=== PATIENT | male | born 1960 | race Caucasian/White ===

== ENCOUNTER 2024-04-05 10:08 | Emergency (ER) | payer OTHER ==
[~2024-04-05] VITALS: Ht 172.7 cm; Wt 93.0 kg
[2024-04-05] MEDS: IV NS 0.9% 1,000 ML BAG IV ONE ×2 (10:44→12:34)
[2024-04-05 11:11] LABS: BASOPHILS # (AUTO) 0.1 K/uL (0.0-0.2); BASOPHILS % (AUTO) 0.4 % (0.0-2.0); HEMATOCRIT 43 % (39-51); HEMOGLOBIN 14.4 g/dL (13.5-17.5); LYMPHOCYTES # (AUTO) 1.1 K/uL (0.8-4.8); LYMPHOCYTES % (AUTO) 6.8 % (20.0-44.0); MEAN CORPUSCULAR HEMOGLOBIN 27 PG (26.0-33.0); MEAN CORPUSCULAR HGB CONC 33 g/dl (31.0-36.0); MEAN CORPUSCULAR VOLUME 81 fL (80-96); MONOCYTES # (AUTO) 0.9 K/uL (0.1-1.30); MONOCYTES % (AUTO) 5.6 % (2.0-12.0); NEUTROPHILS # (AUTO) 13.7 K/uL (1.8-8.9); NEUTROPHILS % (AUTO) 87.2 % (43.0-81.0); PLATELET COUNT (AUTO) 212 K/uL (150-450); RED BLOOD CELL COUNT(AUTO) 5.32 MIL/uL (4.5-6.0); RED CELL DISTRIBUTION WIDTH 14.5 % (11.5-15.0); WHITE BLOOD COUNT (AUTO) 15.7 K/uL (4.3-11.0)
[2024-04-05 11:17] LABS: APPEARANCE,URINE CLEAR (CLEAR); BILIRUBIN,URINE NEGATIVE (NEGATIVE); BLOOD, URINE TRACE-INTA Ery/uL (NEGATIVE); COLOR,URINE DARK YELLOW (YELLOW); KETONES,URINE NEGATIVE (NEGATIVE); LEUKOCYTE ESTERASE ,URINE NEGATIVE (NEGATIVE); NITRITE, URINE NEGATIVE (NEGATIVE); PH,URINE 7.5 (5.0-8.0); PROTEIN,URINE TRACE mg/dl (NEGATIVE); UGLUCOSE NEGATIVE (NEGATIVE); UROBILINOGEN,URINE 0.2 EU/dL (0.2)
[2024-04-05 11:26] LABS: CALCIUM, SERUM 9.1 mg/dL (8.5-10.1); CARBON DIOXIDE 28 mmol/L (21-32); CHLORIDE 101 mmol/L (98-107); CREATININE 1.1 mg/dL (0.6-1.3); GLUCOSE 134 mg/dL (74-106); POTASSIUM 3.9 mmol/L (3.5-5.1); SODIUM SERUM 137 mmol/L (136-145); UREA NITROGEN, BLOOD 15 mg/dL (7-18)
[2024-04-05 11:30] LABS: WBC,URINE 0-2 /HPF (0-3)
[2024-04-05 11:31] LABS: ADD URINE CULTURE NO; BACTERIA,URINE Rare /HPF (None Seen); SQUAMOUS EPITHELIAL CELL,UR Rare /HPF (None Seen)
[2024-04-05 11:35] LABS: ALANINE AMINOTRANSFERASE 42 U/L (12-78); ALBUMIN 3.7 g/dL (3.4-5.0); ALKALINE PHOSPHATASE 87 U/L (46-116); ASPARTATE AMINOTRANSFERASE 27 U/L (15-37); BILIRUBIN,DIRECT 0.2 mg/dL (0.0-0.2); BILIRUBIN,TOTAL 0.6 mg/dL (0.2-1.0); TOTAL PROTEIN, SERUM 7.9 g/dL (6.4-8.2)
[2024-04-05] MEDS ORDERED: ONDANSETRON HCL/PF 4 MG/2 ML VIAL ONE (12:31)
[2024-04-05] MEDS ORDERED: ACETAMINOPHEN ES 500 MG TABLET ONE (12:32)
[2024-04-05] MEDS: ONDANSETRON HCL/PF 4 MG/2 ML VIAL IV ONE (12:34)
[2024-04-05] MEDS: ACETAMINOPHEN ES 500 MG TABLET PO ONE (12:34)
[2024-04-05] MEDS ORDERED: ONDA4TAB5 PO (13:46)
[2024-04-05 13:57] VITALS: BP 131/90; TEMP 98.8; O2SAT 100
[2024-04-06] MEDS ORDERED: AMOX-427 PO (09:36)
[2024-04-06] MEDS ORDERED: CETI1TAB9 PO (09:36)
[2024-04-06] MEDS ORDERED: FLUT16SP16 BNOSTRILS (09:36)
== END 2024-04-05 13:58 | disposition home or self-care (01) ==
LOC: ER 10:20
DX: R50.9 Fever, unspecified (principal); I10 Essential (primary) hypertension; Z20.822 Contact with and (suspected) exposure to COVID-19; Z88.1 Allergy status to other antibiotic agents
CPT/HCPCS: 99285; 96374; 96361; 71045; 87426; 93005; 84145; 85025; 80048; 87040 ×2; 83605; 80076; 81001; 36415; 84484; J2405; J7030 ×2

== ENCOUNTER 2024-04-06 07:14 | Emergency (ER) | payer OTHER ==
[~2024-04-06] VITALS: Ht 172.7 cm; Wt 98.4 kg
[~2024-04-06 07:14] MED LIST: ONDA4TAB5 PO
[2024-04-06] MEDS ORDERED: TRAMADOL HCL 50 MG TABLET ONE (07:47)
[2024-04-06] MEDS ORDERED: ACETAMINOPHEN ES 500 MG TABLET ONE (07:48)
[2024-04-06] MEDS: ACETAMINOPHEN ES 500 MG TABLET PO ONE (07:52)
[2024-04-06] MEDS: TRAMADOL HCL 50 MG TABLET PO ONE (07:53)
[2024-04-06] MEDS ORDERED: AMOX-427 PO (09:36)
[2024-04-06] MEDS ORDERED: FLUT16SP16 BNOSTRILS (09:36)
[2024-04-06] MEDS ORDERED: CETI1TAB9 PO (09:36)
[2024-04-06 10:00] VITALS: BP 120/78; TEMP 98.2; O2SAT 98
== END 2024-04-06 10:00 | disposition home or self-care (01) ==
LOC: ER 07:31
DX: J32.9 Chronic sinusitis, unspecified (principal); I10 Essential (primary) hypertension; E78.00 Pure hypercholesterolemia, unspecified; Z87.19 Personal history of other diseases of the digestive system; Z88.6 Allergy status to analgesic agent
CPT/HCPCS: 70486-TC